=== PATIENT | female | born 1985 | race Caucasian/White ===

== ENCOUNTER 2019-02-27 21:29 | Emergency (ER) | payer OTHER ==
[~2019-02-27] VITALS: Ht 160 cm; Wt 94.1 kg
[~2019-02-27 21:29] MED LIST: MED4DP PO; TRAM50TA2 PO
[2019-02-27 21:45] VITALS: Ht 160 cm; Wt 94.1 kg
[2019-02-27] MEDS ORDERED: morphine 4 MG/ML VIAL IV STA (22:13)
[2019-02-27] MEDS ORDERED: ONDANSETRON 4 MG INJ IV STA (22:13)
[2019-02-27] MEDS ORDERED: METHYLPREDNISOLONE 125 MG INJ IV ONE (22:30)
[2019-02-28] MEDS ORDERED: DIPHENHYDRAMINE 50 MG INJ IV ONE (01:00)
[2019-02-28 02:10] VITALS: BP 115/74; PULSE 58; RESP 16
== END 2019-02-28 02:25 | disposition home or self-care (01) ==
LOC: E/R 21:29
DX: L93.0 Discoid lupus erythematosus (principal)
CPT/HCPCS: 36415; 80053; 81003; 81025; 83690; 85025; 87086; 96374; 96375; J1200; J2270; J2405; J2930; Z7502